=== PATIENT | male | born 1970 | race Hispanic/Latino ===

== ENCOUNTER → 2018-11-12 | Outpatient (CLI) | payer OTHER ==
--- NOTE | 2018-11-13 17:18 | Diagnostic Imaging Report ---
History: Right leg and back pain Comparison studies: None Technique: Sagittal, coronal and axial T2 , sagittal T1 and IR, axial spin density oblique. Intravenous contrast: None Findings: Number of lumbar vertebral bodies:5 Alignment: Straightening of the lumbar lordosis. Grade 1 retrolisthesis of L5 over S1 (7 mm).No scoliosis. Soft tissues: No per spinal T2 hyperintense inflammatory changes. 2 cm T2 hyperintense segment 7 liver lesion, could be related to cyst or hemangioma (seen on coronal T2). Paraspinal muscles: No signal abnormalities. No atrophy. Lower thoracic cord:Normal in signal and morphology. The tip of the conus is at L1. Cauda equina: No masses. No arachnoiditis. Vertebrae: Normal in height and signal intensity. No compression fractures, infection or neoplasm. Degenerative changes: L1-L2: No abnormalities. L2-L3: No abnormalities. L3-L4: No abnormalities. L4-L5: No abnormalities. L5-S1: Disc degeneration with decreased intervertebral space and loss of T2 signal. Uncoverage of the inferior disc. Diffuse disc bulge with superimposed central disc protrusion and mild facet hypertrophy results in mild canal stenosis, narrowing of the left subarticular recess, mild right and moderate left foraminal narrowing.. Additional findings: None IMPRESSION: Mild canal stenosis, narrowing of the left subarticular recesses and moderate left foraminal narrowing at L5-S1 secondary to degenerative changes and grade 1 retrolistheses. Signed by: DR Aydin Fernando M.D. on 11/13/2018 5:15 PM
== END ==
LOC: EDSEX → EDBD → MRI 14:33
PROVIDERS: ATTEND Anesthesiology Pain Medicine
DX: M96.1 Postlaminectomy syndrome, not elsewhere classified (principal); M54.5 Low back pain; G63 Polyneuropathy in diseases classified elsewhere; G89.4 Chronic pain syndrome; M62.830 Muscle spasm of back; Z98.890 Other specified postprocedural states
CPT/HCPCS: 72148